=== PATIENT | male | born 1995 | race American Indian/Alaskan Native ===

== ENCOUNTER 2017-02-11 15:09 | Emergency (ER) | payer OTHER ==
[2017-02-11] MEDS ORDERED: TETRACAINE 0.5% ONE (16:29)
[2017-02-11] MEDS ORDERED: FUL-GLO OP ONE (16:29)
[2017-02-11] MEDS ORDERED: BSS ONE (16:29)
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
[2017-02-11] MEDS: BSS OU ONE (16:50)
[2017-02-11] MEDS: FUL-GLO OP ONE (16:50)
[2017-02-11] MEDS: MORPHINE IM ONE (16:56)
[2017-02-11] MEDS: ZOFRAN IM ONE (16:57)
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
[2017-02-11] MEDS: VANCOMYCIN/NS 1 GM/250 ML 1 GM/250 ML BAG IV ONE (17:29)
[2017-02-11] MEDS ORDERED: TETRACAINE 0.5% OU PRN (18:16)
[2017-02-11 18:51] VITALS: BP 130/74
[2017-02-11] MEDS: NACL 0.9% 1000 ML 1,000 ML IV ONE (19:28)
[2017-02-11] MEDS: MAXIPIME/NS 2 GM/100 ML 2 GM/100 ML BAG IV ONE (19:28)
== END 2017-02-11 19:35 | disposition other institution (70) ==
LOC: ED 15:09
DX: T15.92XA Foreign body on external eye, part unspecified, left eye, initial encounter (principal); S05.12XA Contusion of eyeball and orbital tissues, left eye, initial encounter; S05.32XA Ocular laceration without prolapse or loss of intraocular tissue, left eye, initial encounter; X58.XXXA Exposure to other specified factors, initial encounter; Y93.9 Activity, unspecified; Y92.9 Unspecified place or not applicable; Y99.9 Unspecified external cause status
CPT/HCPCS: 70450; 70480; 96365; 96366; 96372; 99291; J0692; J2270; J2405; J3370; J7030